=== PATIENT | female | born 1945 ===

== ENCOUNTER 2016-11-14 07:47 | Day surgery (SDC) | payer OTHER ==
[2016-11-09 14:51] LABS: BASOPHILS 0.2 %; BASOPHILS ABSOLUTE 0.02 10/3/uL (0.0-0.16); EOSINOPHILS 2.9 %; EOSINOPHILS ABSOLUTE 0.27 10/3/uL (0.0-0.53); HEMATOCRIT 43.4 % (36.0-48.0); IMMATURE GRANULOCYTES 0.3 %; IMMATURE GRANULOCYTES ABSOLUTE 0.03 10/3/uL (0.0-0.11); LYMPHOCYTES 16.4 %; LYMPHOCYTES ABSOLUTE 1.52 10/3/uL (0.67-4.30); MANUAL DIFF NO %; MEAN CORPUS HGB CONC 34.6 g/dL (32.0-36.0); MEAN CORPUSCULAR HEMOGLOB 32.1 pg (26.0-34.0); MEAN CORPUSCULAR VOLUME 92.9 fL (80-100); MEAN PLATELET VOLUME 9.4 fL (9.2-13.0); MONOCYTES 9.7 %; NEUTROPHILS 70.5 %; NEUTROPHILS ABSOLUTE 6.53 10/3/uL (2.02-8.40); PLATELET COUNT 245 10/3/uL (150-400); RBC DISTRIBUTION WIDTH 14.1 % (12.0-16.0); RED CELL COUNT 4.67 10/6/uL (4.0-5.6); WHITE BLOOD CELLS 9.3 10/3/uL (4.5-10.5)
[2016-11-09 15:03] LABS: BUN (BLOOD UREA NITROGEN) 16 MG/DL (6-23); CALCIUM, SERUM 8.6 MG/DL (8.5-10.4); CHLORIDE, SERUM 103 MMOL/L (96-112); CO2 (CARBON DIOXIDE) 32 MMOL/L (24-34); GFR AFRICAN AMERICAN 48 ML/MIN (>=60); GFR NON AFRICAN AMERICAN 41 ML/MIN (>=60); POTASSIUM, SERUM 4.3 MMOL/L (3.5-5.3); SODIUM, SERUM 139 MMOL/L (135-148)
[2016-11-09 15:05] LABS: GLUCOSE, SERUM 115 MG/DL (60-99)
--- NOTE | ~2016-11-14 | OP ---
Record Of Operation [facility] [address] [facility] [address] [place]. [address] NAME: GENIE ROBERSON : 45 STATUS : [facility] PAT#: [id number] AGE: 71 ADM/REG DATE : 11/14/16 MR#: [id number] REPORT SERV DATE: 11/14/16 DICTATED BY: NATHANIEL CIFUENTES DATE: 11/14/16 REPORT STATUS : Draft TRANSCRIBED BY: TANNER DATE: 11/14/16 DATE OF PROCEDURE: 11/14/2016 SERVICE: Otolaryngology. PREOPERATIVE DIAGNOSES: 1. Bilateral chronic frontal sinusitis. 2. Right renea bullosa. 3. Left chronic maxillary sinus. POSTOPERATIVE DIAGNOSES: 1. Bilateral chronic frontal sinusitis. 2. Right renea bullosa. 3. Left chronic maxillary sinus. PROCEDURE: 1. Endoscopic bilateral frontal sinusotomy. 2. Endoscopic left maxillary antrostomy with removal of contents. 3. Endoscopic right renea bullectomy. SURGEON: Nathaniel Cifuentes MD ANESTHESIA: General endotracheal anesthesia. COMPLICATIONS: None. SPECIMEN: 1. Right renea bullectomy. 2. Left maxillary sinus contents. FINDINGS: The patient had a large renea bullosa of the right middle turbinate, had a completely impacted left maxillary sinus with fungal mucin and super infection, had narrowed frontal sinus outflow tracts bilaterally. STATEMENT OF MEDICAL NECESSITY: This is a 71-year-old female, referred to me for complaints of left-sided facial pain, pressure between her eyes going on for months. CT scan showed completely impacted maxillary sinus on the left, narrowing in and inflammation of both frontal sinus outflow tracts and a right-sided renea bullosa. Given her complaints and her history of being treated already with antibiotics and no relief, I recommended the above procedures. STATEMENT OF OPERATION: The patient was brought to the operating room in supine position, transferred over to the operating room table. After all pressure points were padded and general endotracheal anesthesia was established, the patient was placed in reverse Trendelenburg. The nasal hairs were trimmed. Both sides of nose were packed with cocaine- soaked pledgets and she was prepped out for a sinus surgery. The pledgets were removed Record Of Operation [facility] [address] [facility] [address] [facility] [place]. [address] NAME: GENIE ROBERSON : 45 STATUS : [facility] PAT#: [id number] AGE: 71 ADM/REG DATE : 11/14/16 MR#: [id number] REPORT SERV DATE: 11/14/16 DICTATED BY: NATHANIEL CIFUENTES DATE: 11/14/16 REPORT STATUS : Draft TRANSCRIBED BY: TANNER DATE: 11/14/16 after they were allowed to remain for appropriate amount of time. A 0-degree endoscope was advanced into the right side of the nose first. 1% lidocaine with epinephrine was injected into the lateral nasal wall, root of middle turbinate and face of the middle turbinate. This process repeated for the left hand side injecting the same spots. Next, a sickle knife was entered into the renea bullosa by piercing the anterior face of the right middle turbinate. Then using through-cutting forceps, the lateral half of the renea bullosa wall was removed. The edges were then trimmed with a microdebrider. Then using the Acclarent balloon system, the frontal sinus was cannulated on the right-hand side. Confirmation of appropriate cannulation was made using a focal light transmitted from the frontal sinus. Three separate inflations to 12 atmospheres for 3 seconds each were performed on that side. Next, moved to the left-hand side, a gentle medialization of the middle turbinate was performed. The Acclarent device was used to cannulate the left frontal sinus and a single inflation was performed to 12 atmospheres on that side. The 45-degree scope was used on both sides to confirm wide passageway of the frontal sinus outflow tract. Next, the curved end of the frontal sinus seeker was used to anteriorize the uncinate process. Once this was performed, a pediatric backbiter forceps was used to remove the inferior portion of the uncinate process from a posterior to anterior direction. Immediately upon entering the maxillary sinus, thick fungal mucin with superinfection was present. I removed the entire uncinate process then with the microdebrider. Then, using a curved suction and Hydrodebrider, I was able to irrigate. With forced irrigation in the left maxillary sinus, I removed thick chunks of allergic mucin, this was all taken off the field, some was sent for pathologic analysis. Using angled scopes, I was able to evaluate the entire maxillary cavity until all the mucin was removed. The mucosa behind was very inflamed and abnormal appearing. Once this was completed, I filled the maxillary sinus cavity with Sinu-Foam. This concluded the case. The patient was turned over to Anesthesia where she awoke, was extubated, and transferred to the PACU in stable condition. PS/MODL Nathaniel Cifuentes MD / [id number] CC: MD Debra Guaman M.D.
[~2016-11-14 07:47] MED LIST: ACT300 PO; BENTYL20 PO; CALTRA600D PO; FLONASE NAS; IMU PO; LEVOTHYROXIN88 MCG PO; LEXAPRO10 PO; MOBIC15 MG PO; NEUR100 PO; PROAIRRESP INH; PROTONIX PO; QVAR80 MCG INH; SINGULAIR1 PO; [UNRECOGNIZED DRUG - REMARK]
== END 2016-11-14 14:04 | disposition home or self-care (01) ==
LOC: SDC 07:47
PROVIDERS: Otolaryngology
PROC: 099S4ZZ Drainage of Right Frontal Sinus, Percutaneous Endoscopic Approach (ICD-10-PCS; 2016-11-14)
PROC: 099T4ZZ Drainage of Left Frontal Sinus, Percutaneous Endoscopic Approach (ICD-10-PCS; 2016-11-14)
PROC: 09BL4ZZ Excision of Nasal Turbinate, Percutaneous Endoscopic Approach (ICD-10-PCS; 2016-11-14)
PROC: 099R4ZZ Drainage of Left Maxillary Sinus, Percutaneous Endoscopic Approach (ICD-10-PCS; principal; 2016-11-14 09:45)
DX: J32.0 Chronic maxillary sinusitis (principal); R23.8 Other skin changes; J45.909 Unspecified asthma, uncomplicated; E03.9 Hypothyroidism, unspecified; J32.1 Chronic frontal sinusitis; Z88.1 Allergy status to other antibiotic agents; Z88.8 Allergy status to other drugs, medicaments and biological substances; Z98.890 Other specified postprocedural states
CPT/HCPCS: 80048; 85025; 88304; 88305; 93005; A9270-GY; C1726; J0360; J2405; J2710; J3010